=== PATIENT | male | born 1980 | race Two or more races ===

== ENCOUNTER 2016-10-26 14:59 | Emergency (ER) | payer SELFPAY ==
--- NOTE | 2016-10-26 15:25 | EDPHY ---
H & P Time Seen by Provider: 10/26/16 15:12 HPI/ROS: CHIEF COMPLAINT: Odontalgia HISTORY OF PRESENT ILLNESS: 36-year-old male history of poor dentition complaining of bilateral maxillary dental pain ongoing for the past several days. Atraumatic. No fever no chills. No change in voice. No facial swelling. No nuchal rigidity. PHYSICAL EXAM (Prior to examination, patient consented to physical exam, hands were washed and my usual and customary physical exam procedures followed) 1) GENERAL: Well-developed, well-nourished, alert and oriented. Appears nontoxic. 2) HEAD: Normocephalic 3) HEENT: sclera anicteric. No trismus no drooling . No facial swelling. Nasolabial folds are symmetrical. Tender to percussion bilateral maxillary molars with no evidence of apical abscess. No fluctuance. Floor of mouth is soft. No evidence of Rahul's angina. Submandibular and submental spaces are soft. 4) LUNGS: Breathing comfortably. Smoking Status: Current every day smoker Constitutional: Initial Vital Signs Temperature (C) 36.7 C 10/26/16 15:05 Heart Rate 88 10/26/16 15:05 Respiratory Rate 16 10/26/16 15:05 Blood Pressure 114/83 H 10/26/16 15:05 O2 Sat (%) 9 L 10/26/16 15:05 O2 Delivery Mode Room Air Allergies/Adverse Reactions: No Known Allergies Allergy (Unverified 10/26/16 15:04) Home Medications: Medication Instructions Recorded Amoxicillin Trihydrate 500 mg PO Q8 7 Days 10/26/16 [Amoxicillin 500mg cap] Hydrocodone/APAP 5/325 [[place] 1 tab PO Q6 PRN #7 tab 10/26/16 5/325 (RX)] Ibuprofen [Motrin (*)] 800 mg PO Q6 #15 tab 10/26/16 MDM/Departure - MDM ED Course/Re-evaluation: Doubt abscess deep space infection, phlegmon. Doubt Rahul's angina. Recommended follow-up with dentist. Offered dental nerve block which he initially accepted however once the needle punctured his gingiva he immediately withdrew declined any further intervention. Was unable to infiltrate any analgesia. Plan will be discharged with antibiotic, analgesia and usual and customary dental precautions instructions. He feels comfortable being discharged - Depart Disposition: Home, Routine, Self-Care Clinical Impression: Odontalgia Condition: Good Instructions: Toothache (ED) Additional Instructions: Return to the ER immediately if you cannot swallow, have drooling, fevers, neck stiffness, cannot open your jaw, or any other symptoms that concern you. Prescriptions: Amoxicillin Trihydrate [Amoxicillin 500mg cap] 500 mg PO Q8 7 Days Hydrocodone/APAP 5/325 [[place] 5/325 (RX)] 1 tab PO Q6 PRN #7 tab PRN Reason: Pain, Severe Ibuprofen [Motrin (*)] 800 mg PO Q6 #15 tab Referrals: [facility] [Outside] - As per Instructions [facility] [address] [Outside] - As per Instructions [facility] [Outside] - As per Instructions [facility] [Outside] - As per Instructions [facility] [Outside] - As per Instructions
[2016-10-26 15:43] VITALS: BP 124/77; PULSE 78; RESP 14; TEMP 98.4; O2SAT 94
== END 2016-10-26 15:42 | disposition home or self-care (01) ==
LOC: EDBD 14:59
DX: K08.89 Other specified disorders of teeth and supporting structures (principal); F17.200 Nicotine dependence, unspecified, uncomplicated

== ENCOUNTER 2017-03-12 12:27 | Emergency (ER) | payer SELFPAY ==
[2017-03-12 12:32] VITALS: BP 124/86; PULSE 92; RESP 18; TEMP 98.6; O2SAT 96
== END 2017-03-12 14:19 | disposition left against medical advice (07) ==
DX: Z53.21 Procedure and treatment not carried out due to patient leaving prior to being seen by health care provider (principal)

== ENCOUNTER 2017-07-06 16:18 | Emergency (ER) | payer SELFPAY ==
[2017-07-06] MEDS ORDERED: IBUPROFEN 600 MG TAB PO ONE (16:55)
[2017-07-06 17:28] VITALS: BP 138/68; PULSE 76; RESP 19; TEMP 98.2; O2SAT 95
--- NOTE | 2017-07-06 17:29 | EDPHY ---
H & P Time Seen by Provider: 07/06/17 16:31 HPI/ROS: 37-year-old male presents complaining of fall approximately 4 days ago hope with current Vince pain in his left wrist . He also complains of a chipped tooth. No other complaints. Review of systems General no fever no chills no weakness HEENT no eye pain no eye discharge. No eye redness, no sore throat Respiratory no cough, no shortness of breath Cardiac no chest pain, no peripheral edema GI no abdominal pain, no diarrhea, no constipation, no nausea, no vomiting no flank pain, no hematuria, no dysuria Musculoskeletal positive myalgias/positive joint pain Heme no easy bruising, no easy bleeding Endo no polyuria, no polydipsia Skin no rashes, no pruritus Neuro no syncope, no dizziness, no headaches Psych is no suicidal ideation, no homicidal ideation Past Medical/Surgical History: None Social History: Uses tobacco daily Occasional alcohol Denies drug use Smoking Status: Current every day smoker Physical Exam: 37-year-old male alert and oriented no acute distress nontoxic appearance, afebrile Atraumatic normocephalic Oropharynx no swelling no lip or tongue lacerations, left upper canine with small chip no dentin exposed No trismus Neck supple, nontender Lungs clear to auscultation bilaterally Heart regular rate and rhythm without murmur or gallop Abdomen NABS soft Extremities no cyanosis clubbing or edema Except Left upper extremity with slight erythema and swelling over distal lateral rest , full range of motion, good hearing and speech assistant, good capillary refill intact However tender to palpation at distal radius Constitutional: Initial Vital Signs Temperature (C) 37 C 07/06/17 16:41 Heart Rate 95 07/06/17 16:41 Respiratory Rate 18 07/06/17 16:41 Blood Pressure 148/86 H 07/06/17 16:41 O2 Sat (%) 98 07/06/17 16:41 O2 Delivery Mode Room Air Allergies/Adverse Reactions: No Known Allergies Allergy (Verified 07/06/17 16:41) Home Medications: Medication Instructions Recorded NK [No Known Home Meds] 03/12/17 Medical Decision Making - Diagnostics Imaging Results: Imaging Impressions Wrist X-Ray 07/06/17 16:54 Impression: 1. No acute fracture. 2. Age indeterminate tear versus laxity of the scapholunate ligament. ED Course/Re-evaluation: Patient seen and evaluated for wrist pain after a fall approximately 4 days ago X-ray Negative for fracture Impression Wrist sprain Plan Velcro thumb spica Follow-up PCP Danny Wade Differential Diagnosis: Wrist pain, wrist fracture, hand pain, hand fracture, sprain - Data Points Medications Given: Discontinued Medications Ibuprofen (Motrin) 600 mg PO EDNOW ONE Stop: 07/06/17 16:56 Last Admin: 07/06/17 17:05 Dose: Not Given Departure - Departure Disposition: Home, Routine, Self-Care Clinical Impression: Left wrist sprain Condition: Good Instructions: Wrist Sprain (ED) Additional Instructions: May take ibuprofen ervery 6-8 hours as need for pain. Rest, ice, elevation, wrist splint. Referrals: NONE *PRIMARY CARE P,. [Primary Care Provider] - As per Instructions [facility],. [Clinic] - As per Instructions
== END 2017-07-06 17:34 | disposition home or self-care (01) ==
LOC: CED 16:18
DX: S63.502A Unspecified sprain of left wrist, initial encounter (principal); F17.200 Nicotine dependence, unspecified, uncomplicated; W18.39XA Other fall on same level, initial encounter
CPT/HCPCS: 73110-PO; L3807